=== PATIENT | female | born 1990 | race Caucasian/White ===

== ENCOUNTER 2018-06-19 16:18 | Emergency (ER) | payer OTHER, SELFPAY ==
[2018-06-19 16:26] VITALS: BP 165/102; PULSE 89; RESP 20; O2SAT 98
--- NOTE | 2018-06-19 16:37 | ED.ABDPAIN ---
HPI - Abdominal Pain General Chief Complaint: Abdominal Pain Stated Complaint: ABD PAIN, CAN'T EAT Time Seen by Provider: 06/19/18 16:23 Source: patient Mode of arrival: ambulatory Limitations: no limitations History of Present Illness HPI narrative: 27-year-old female here for evaluation of epigastric abdominal pain. Patient states that it has been off and on since October. She has has seen her primary doctor for this. Has an appointment with a GI provider in July. She is currently on omeprazole. She states that she has had a right upper quadrant ultrasound of her gallbladder but no diagnosis of gallbladder pathology. She states that she is also nauseous. Does seem to be associated with eating however not all the time. No vomiting. No changes stool. No urinary symptoms. No prior abdominal surgeries. Related Data Home Medications Medication Instructions Recorded Confirmed omeprazole 20 mg PO QDAY #0 11/05/17 06/19/18 escitalopram oxalate 5 mg PO DAILY 06/19/18 06/19/18 Previous Rx's Medication Instructions Recorded ondansetron 4 mg PO BID-TID PRN #10 tab 06/19/18 sucralfate [Carafate] 5 ml PO QID #420 ml 06/19/18 Allergies Allergy/AdvReac Type Severity Reaction Status Date / Time oxycodone [OXYCODONE] Allergy Mild NAUSEA AND Verified 06/19/18 16:30 VOMITING hydrocodone [HYDROCODONE] AdvReac Mild NAUSEA AND Verified 06/19/18 16:30 VOMITING Review of Systems Constitutional Denies fever(s) Cardiovascular Denies chest pain and Denies dyspnea Respiratory Denies dyspnea Gastrointestinal Gastrointestinal: Reports abdominal pain, Denies change in stool character, Denies constipation, Reports nausea and Denies vomiting Genitourinary Denies dysuria Musculoskeletal Denies myalgias and Denies arthralgias Integumentary/Breasts Denies lesions and Denies rash Hematologic/Lymphatic Denies easy bleeding and Denies easy bruising FOR[facility], LAT[facility] Medical History Raynauds disease (Acute) Surgical History No pertinent past surgical history (Acute) Exam Initial Vital Signs Initial Vital Signs: Vital Signs Pulse Rate 89 06/19/18 16:26 Respiratory Rate 20 08/26/18 16:26 Blood Pressure 165/102 H 06/19/18 16:26 Pulse Oximetry 98 06/19/18 16:26 Const General: cooperative, healthy appearing, comfortable, well developed, well groomed and No acute distress Orientation: alert, awake and oriented x3 HENMT Head: normal to inspection and normocephalic Resp Effort & Inspection: normal respiratory effort Auscultation: clear to auscultation bilaterally Cardio Rate: regular rate Rhythm: regular rhythm Heart Sounds: no murmurs Pulses: radial pulses present GI Inspection: non-distended Palpation: soft, No firm and tender (Epigastric region) Back/Spine/Pelvis Back: No CVA tenderness Skin Lesions: no lesions Rashes: no rashes Neuro General: alert, awake and oriented x3 Cognition: normal cognition Speech: speech normal Gait: normal gait Motor: muscle tone normal throughout Sensory Exam: no sensory deficits noted Extrem General: normal to inspection and capillary refill normal Psych Appearance: grossly normal and well kempt Course Orders Ordered: ED Orders 06/19/18 17:00 Complete Blood Count AUTO DIFF Stat Comprehensive Metabolic Panel Stat Lipase Stat Vital Signs - 8 hr 06/19/18 16:26 06/19/18 17:41 Temperature 97.8 F Pulse Rate 89 71 Respiratory Rate 20 16 Blood Pressure 165/102 H Blood Pressure [Right Arm] 119/77 Pulse Oximetry 98 100 MDM - Abdominal Pain Lab Data Attestation: I reviewed the patient's lab results. Result diagrams: 06/19/18 17:00 06/19/18 17:00 Lab Results 06/19/18 06/19/18 Range/Units 17:00 17:00 WBC 8.1 (4.5-11.0) X10^3/uL RBC 4.58 (4.0-5.2) X10^6/uL Hgb 13.5 (12.0-16.0) g/dL Hct 40.1 (36-46) % MCV 87.6 (80-100) fL MCH 29.4 (26-34) PG MCHC 33.6 (30-36) % RDW 13.5 (11.6-14.8) % Plt Count 210 (150-400) X10^3/uL Neut % (Auto) 62.7 (50-75) % Lymph % (Auto) 30.0 (25-40) % [place] % (Auto) 5.6 (3-14) % Eos % (Auto) 0.8 L (2-4) % Baso % (Auto) 0.9 (0-2) % Neut # (Auto) 5100 (1273-0732) /uL Sodium 143 (137-145) mmol/L Potassium 3.6 (3.4-5.1) mmol/L Chloride 105 (98-107) mmol/L Carbon Dioxide 28 (22-32) mmol/L BUN 11 (7-17) mg/dL Creatinine 0.60 (0.52-1.04) mg/dL Estimated GFR > 60.0 (>60) mL/min BUN/Creatinine Ratio 18.3 (6-22) Glucose 119 H (70-100) mg/dL Calcium 9.4 (8.4-10.2) mg/dL Total Bilirubin 0.7 (0.2-1.3) mg/dL AST 21 (14-36) IU/L ALT 20 (9-52) IU/L Alkaline Phosphatase 60 (38-126) U/L Total Protein 7.3 (6.3-8.2) g/dL Albumin 4.6 (3.5-5.0) g/dL Globulin 2.7 (1.7-4.1) g/dL Albumin/Globulin Ratio 1.7 (1.0-2.8) Lipase 50 (23-300) U/L MDM Narrative Medical decision making narrative: Labs are unremarkable. Has a benign abdominal exam. Has had off and on pain since October. Have low suspicion for acute surgical pathology. She currently is on a map result 20 mg every day. Will give her prescription for Carafate. Her symptoms sound very much like a gastric ulcer. Also sent home with some Zofran. She has a follow-up with GI coming up. She was given return precautions. She expressed understanding and agreement with plan. Discharge Plan Departure Patient Disposition: Home Clinical Impression: Abdominal pain Instructions: DI for Abdominal Pain-Adult Activity Restrictions/Additional Instructions: Take the medication like we discussed. Keep your scheduled appointment with your GI provider. Return to the emergency department for any new or worsening symptoms Prescriptions: New sucralfate [Carafate] 100 mg/mL suspension 5 ml PO QID Qty: 420 RF: 0 ondansetron 4 mg tablet,disintegrating 4 mg PO BID-TID PRN (Reason: nausea and vomiting) Qty: 10 RF: 0 No Action omeprazole 20 MG capsule,delayed release(DR/EC) 20 mg PO QDAY Qty: 0 RF: 0 escitalopram oxalate 5 mg Tablet 5 mg PO DAILY RF: 0
[2018-06-19 17:11] LABS: Add Manual Diff / Slide Review NO; Basophils Percent Auto 0.9 % (0-2); Eosinophils Percent Auto 0.8 % (2-4); Hematocrit 40.1 % (36-46); Hemoglobin 13.5 g/dL (12.0-16.0); Mean Corpuscular HGB Conc 33.6 % (30-36); Mean Corpuscular Hemoglobin 29.4 PG (26-34); Mean Corpuscular Volume 87.6 fL (80-100); Monocytes Percent Auto 5.6 % (3-14); Neutrophils Absolute Auto 5100 /uL (3000-5900); Neutrophils Percent Auto 62.7 % (50-75); Platelet Count 210 X10^3/uL (150-400); Red Blood Cell Count 4.58 X10^6/uL (4.0-5.2); Red Cell Distribution Width 13.5 % (11.6-14.8); White Blood Cell Count 8.1 X10^3/uL (4.5-11.0)
[2018-06-19 17:22] LABS: Alanine Aminotransferase 20 IU/L (9-52); Albumin 4.6 g/dL (3.5-5.0); Albumin Globulin Ratio 1.7 (1.0-2.8); Alkaline Phosphatase 60 U/L (38-126); Aspartate Aminotransferase 21 IU/L (14-36); BUN Creatinine Ratio 18.3 (6-22); Bilirubin Total 0.7 mg/dL (0.2-1.3); Blood Urea Nitrogen 11 mg/dL (7-17); Calcium 9.4 mg/dL (8.4-10.2); Carbon Dioxide 28 mmol/L (22-32); Chloride 105 mmol/L (98-107); Estimated Glomerular Filt Rate > 60.0 mL/min (>60); Globulin 2.7 g/dL (1.7-4.1); Glucose 119 mg/dL (70-100); HEMOLYSIS < 15 (0-50); Lipase 50 U/L (23-300); Potassium 3.6 mmol/L (3.4-5.1); Sodium 143 mmol/L (137-145); Total Protein 7.3 g/dL (6.3-8.2)
[2018-06-19 17:41] VITALS: BP 119/77; PULSE 71; RESP 16; TEMP 36.6; O2SAT 100
== END 2018-06-19 17:58 | disposition home or self-care (01) ==
PROVIDERS: Emergency Provider Emergency Medicine; Family Provider Family Medicine; PCP Family Medicine
DX: R10.9 Unspecified abdominal pain (principal)
CPT/HCPCS: 36415; 80053; 83690; 85025; 99282; 99283

== ENCOUNTER → 2018-10-10 07:44 | Outpatient (CLI) | payer OTHER, SELFPAY ==
--- NOTE | 2018-10-10 | DI.CT.S_ITS ---
PROCEDURE: CT ABDOMEN PELVIS W CON INDICATIONS: ABDOMINAL PAIN TECHNIQUE: After the administration of intravenous contrast, 5 mm thick sections acquired from the diaphragm to the symphysis. 5 mm coronal and sagittal reformats were acquired. For radiation dose reduction, the following was used: automated exposure control, adjustment of mA and/or kV according to patient size. COMPARISON: [facility], CT, CT ABDOMEN PELVIS WITH CONTRAST, 09/28/2018, 10:41. FINDINGS: Image quality: Excellent. ABDOMEN: Lung bases: Lung bases are clear. Heart size is normal. Solid organs: Liver is normal in size and enhancement. Gallbladder is partially contracted. Biliary system is non dilated. Pancreas enhances normally. Spleen is normal in size and enhancement. No adrenal nodules. Kidneys demonstrate normal size and enhancement, without hydronephrosis. Peritoneum and bowel: Bowel loops demonstrate normal wall thickness and caliber. No pneumoperitoneum. Previously seen short segment small bowel to small bowel intussusception has resolved. Normal appendix. Small amount of free fluid within the pelvis, within physiological limits in a menstruating female. Nodes and vessels: No retroperitoneal or mesenteric adenopathy by size criteria. Aorta and inferior vena cava are normal in size. Miscellaneous: No change in 16 mm diameter fat-containing umbilical hernia. PELVIS: Genitourinary: Bladder wall thickness is normal. An intrauterine device is present, as before. A partially collapsed left ovarian cyst measuring 17 mm is present. Miscellaneous: No inguinal hernias or adenopathy. Bones: No suspicious bony lesions. No vertebral body compression fractures. IMPRESSION: 1. Resolution of previously seen mildly prominent mesenteric lymph nodes, compatible with resolution of mesenteric adenitis. 2. Resolution of previously seen short segment small bowel to small bowel intussusception. 3. Negative evaluation of the bowel. 4. Small amount of free fluid within the pelvis, within physiological limits in a menstruating female. 5. Normal appendix. Dictated by: Valerie Menjivar M.D. on 10/10/2018 at 10:52 Approved by: Valerie Menjivar M.D. on 10/10/2018 at 10:57
== END ==
PROVIDERS: Family Provider Family Medicine; PCP Family Medicine; Visit Provider Nurse Practitioner Family
DX: R10.10 Upper abdominal pain, unspecified (principal); N83.202 Unspecified ovarian cyst, left side; Z97.5 Presence of (intrauterine) contraceptive device
CPT/HCPCS: 74177; Q9967

== ENCOUNTER → 2018-10-20 07:45 | Outpatient (CLI) | payer OTHER, SELFPAY ==
--- NOTE | 2018-10-20 | DI.NM.S_ITS ---
PROCEDURE: NM GASTRIC EMPTYING STUDY RADIOPHARMACEUTICAL: 1.0 mCi Tc-99m sulfur colloid in an egg sandwich. INDICATIONS: Upper abdominal pain, unspecified TECHNIQUE: A Tc-99m labeled sulfur colloid labeled egg sandwich or oatmeal was served to the patient. Anterior and posterior planar images of the abdomen were obtained at 0 minutes and 30 minutes, then at hourly intervals up to 4 hours. The patient was upright and ambulating during the interval. COMPARISON: [facility], CT, CT ABDOMEN PELVIS WITH CONTRAST, 09/28/2018, 10:41. [facility], CT, CT ABDOMEN PELVIS W CON, 10/10/2018, 9:02. FINDINGS: The stomach has normal size, morphology, and position. There is normal emptying of solid gastric contents from the stomach by visual inspection. No gastroesophageal reflux is visualized. The percentage of tracer retained at specific time points are as follows: Time point Percent gastric retention Normal range 30 minutes 69% 70% or more 1 hour 43% 30% to 90% 2 hours 50% 60% or less 3 hours 4% 30% or less 4 hours - 10% or less IMPRESSION: Probably normal gastric emptying study although the initial phase of gastric emptying is just slightly faster (69% gastric retention at 30 minutes) than normal (70% or more). Dictated by: Sekou Carbone M.D. on 10/20/2018 at 12:49 Approved by: Sekou Carbone M.D. on 10/20/2018 at 16:39
== END ==
PROVIDERS: Family Provider Family Medicine; PCP Family Medicine; Visit Provider Nurse Practitioner Family
DX: R10.10 Upper abdominal pain, unspecified (principal)
CPT/HCPCS: 78264; A9541

== ENCOUNTER → 2019-12-28 19:05 | Outpatient (ROUT) | payer OTHER, SELFPAY ==
[2019-12-28 21:38] LABS: Urine N gonorrhoeae NOT DETECTED
[2019-12-28 22:07] LABS: Urine Chlamydia NOT DETECTED
== END ==
PROVIDERS: Family Provider Family Medicine; PCP Family Medicine
DX: Z11.3 Encounter for screening for infections with a predominantly sexual mode of transmission (principal)
CPT/HCPCS: 87491; 87591

== ENCOUNTER 2020-09-15 09:21 | Emergency (ER) | payer OTHER, SELFPAY ==
[2020-09-15 09:37] VITALS: BP 150/90; PULSE 74; RESP 16; TEMP 36.4; O2SAT 100; BMI 23.9
--- NOTE | 2020-09-15 10:11 | ED_ITS ---
HPI - Extremity Problem General Chief complaint: Extremity Problem,Nontraumatic Stated complaint: LEFT THUMB INFECTION POSS SPREADING UP ARM Time Seen by Provider: 09/15/20 10:02 Source: patient Mode of arrival: Ambulatory Limitations: no limitations History of Present Illness HPI Narrative: This is a 30-year-old female who comes in with complaint of left thumb infection. Patient states she noticed a little bit of swelling last couple days it has increased throughout the thumb and she has kind of up into her hand and even feels like little bit of discomfort towards the elbow. Patient has not had any fevers, no chills, no other systemic symptoms. She has had a little of numbness of the distal thumb, she has not appreciated any major skin color changes. She denies any major medical issues. She does not recall any injuries cuts that may have caused it. She thought she may have had a splinter in her thumb but did not actually see 1 or any entrance site for a splinter at any point. She states that her only allergies are nausea and vomiting to narcotics. Related Data Home Medications Medication Instructions Recorded Confirmed levonorgestrel 20 mcg/24 hours (5 INTRAUTERINE each 03/03/19 04/29/20 yrs) 52 mg intrauterine device sumatriptan succinate 100 mg tablet 100 mg PO Q2-4H PRN 05/16/19 04/29/20 Previous Rx's Medication Instructions Recorded clindamycin HCl 300 mg PO Q6H 7 Days #28 cap 09/15/20 Allergies Allergy/AdvReac Type Severity Reaction Status Date / Time oxycodone [OXYCODONE] Allergy Mild NAUSEA AND Verified 04/29/20 10:08 VOMITING hydrocodone [HYDROCODONE] AdvReac Mild NAUSEA AND Verified 04/29/20 10:08 VOMITING Review of Systems Review of Systems ROS Unobtainable: All systems reviewed & are unremarkable except as noted in HPI and below Patient History Medical History Crohn's disease Raynauds disease Surgical History No pertinent past surgical history Social History Smoking Status: Former smoker Smoking Status: Former smoker alcohol intake frequency: holidays/special occasions only Substance Use Type: does not use Exam Narrative Exam Narrative: GENERAL: Alert and oriented x three, well-nourished, well- appearing female in mild distress. HEENT: Head normocephalic, atraumatic, EOMI, pupils reactive, face symmetric, moist mucous membranes NECK: Supple, full range of motion EXTREMITIES: Normal range of motion, no clubbing. Patient has swelling of the 1st digit/thumb on the left hand. It is mild in comparison to her other thumb but does appear swollen. She has mild tenderness throughout there is no fluid collection or obvious change, there is no erythema or warmth. Patient has cap refill less than 2 seconds in all 5 fingers. He has full range of motion with flexion and extension. There are no areas of induration, fluctuance or fluid collection noted. Neurovascularly intact NEUROLOGICAL: Cranial nerves II through XII grossly intact. Moving all extremities SKIN: Warm, dry, no petechiae, no rashes or lesions. Initial Vital Signs Initial Vital Signs: Vital Signs Temperature 97.6 F 09/15/20 09:37 Pulse Rate 74 09/15/20 09:37 Respiratory Rate 16 09/15/20 09:37 Blood Pressure 150/90 H 09/15/20 09:37 Pulse Oximetry 100 09/15/20 09:37 Course Vital Signs Vital signs: Vital Signs - 8 hr 09/15/20 09:37 09/15/20 10:46 Temperature 97.6 F Pulse Rate 74 65 Respiratory Rate 16 14 Blood Pressure 150/90 H 150/90 H Pulse Oximetry 100 97 MDM - Extremity (Nontraumatic) MDM Narrative Medical decision making narrative: Patient does not have any areas that can be drained. We did discuss Abla edwards and blayne and. At this time I do not feel she would be appropriate to I and D, plan to start oral antibiotics and have patient return if worsening. Also discussed doing warm compresses. 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 Discharge Plan Departure Patient Disposition: Home Clinical Impression: Infection of thumb Instructions: DI for Felon Activity Restrictions/Additional Instructions: Follow-up in the next several days for recheck if her symptoms are not resolving. Continue with warm compresses for 15-20 minutes 4 times daily. Take antibiotics until they are completely gone You may wish to take a probiotic [id number] or eat yogurt daily while taking antibiotics. Return for fevers, rapidly worsening swelling, increasing pain, new numbness, loss of sensation, inability to flex or extend your thumb, redness, swelling or pain moving up her hand or arm or other new or concerning symptoms. Prescriptions: New clindamycin HCl 300 mg capsule 300 mg PO Q6H 7 Days Qty: 28 RF: 0 No Action Mirena 20 mcg/24 hours (5 yrs) 52 mg intrauterine device Intrauterine RF: 0 sumatriptan succinate 100 mg tablet 100 mg PO Q2-4H PRNRF: 0
[2020-09-15 10:46] VITALS: BP 150/90; PULSE 65; RESP 14; O2SAT 97
== END 2020-09-15 10:48 | disposition home or self-care (01) ==
PROVIDERS: Emergency Provider Emergency Medicine; Family Provider Family Medicine
DX: L08.9 Local infection of the skin and subcutaneous tissue, unspecified (principal)
CPT/HCPCS: 99281

== ENCOUNTER → 2021-05-29 15:38 | Outpatient (CLI) | payer OTHER, SELFPAY ==
--- NOTE | 2021-05-29 | DI.MRI.S_ITS ---
PROCEDURE: MR KNEE LT WO CON INDICATIONS: Left knee pain TECHNIQUE: Noncontrast sagittal PD fast spin echo and T2 fast spin echo with fat saturation, sagittal 3-D FLASH with fat saturation; coronal T1 spin echo and PD fast spin echo with fat saturation, and axial PD fast spin echo with fat saturation through the knee. COMPARISON: [facility], MR, KNEE WITHOUT CONTRAST, 03/07/2015, 9:07. FINDINGS: Image quality: Excellent. Menisci: The medial and lateral menisci demonstrate normal morphology and internal signal. The meniscal root ligaments appear intact. Cruciate ligaments: The anterior and posterior cruciate ligaments appear intact. Medial structures: The medial collateral ligament appears intact. The semimembranosus tendon insertions and meniscocapsular junction appear intact. Visualized portions of the pes anserinus tendons appear normal. No abnormal bursal fluid. Lateral structures: The lateral collateral ligament, long and short heads of the biceps femoris tendon appear intact. The popliteus tendon appears intact. No signs of posterolateral corner injury. Iliotibial band appears normal. Anterior structures: The quadriceps and patellar tendons appear intact. Patellar alignment is normal. No femoral trochlear dysplasia or ventral trochlear prominence. No edema in the infrapatellar fat pad. Bones and cartilage: No bone marrow contusions or fractures. The cartilage of the medial and lateral femorotibial compartments, as well as the patellofemoral compartment, appears normal in thickness. Joint space: There is physiologic knee joint fluid. Trace medial popliteal cyst. IMPRESSION: 1. No acute trabecular bone injury. The cruciate and collateral ligaments are intact. There is no meniscal tear. 2. Trace medial popliteal cyst. Dictated by: Harjinder Amanda M.D. on 05/29/2021 at 16:28 Approved by: Harjinder Amanda M.D. on 05/29/2021 at 16:33
== END ==
PROVIDERS: Family Provider Family Medicine; Referring Provider Family Medicine; Visit Provider Family Medicine
DX: M25.562 Pain in left knee (principal)
CPT/HCPCS: 73721

== ENCOUNTER → 2022-12-16 13:17 | Outpatient (CLI) | payer OTHER, SELFPAY ==
[2022-12-19 13:45] LABS: QuantiFERON Mitogen Value >10.00 IU/mL (.); QuantiFERON Nil Value 0.01 IU/mL (.); QuantiFERON TB Gold Plus Negative (Negative); QuantiFERON TB1 Ag Value 0.02 IU/mL (.); QuantiFERON TB2 Ag Value 0.02 IU/mL (.)
== END ==
PROVIDERS: Family Provider Family Medicine; Referring Provider Internal Medicine Gastroenterology; Visit Provider Internal Medicine Gastroenterology
DX: K50.00 Crohn's disease of small intestine without complications (principal)
CPT/HCPCS: 36415; 86480

== ENCOUNTER → 2024-06-21 13:21 | Outpatient (CLI) | payer OTHER, SELFPAY ==
--- NOTE | 2024-06-21 13:23 | DI.CT.S_ITS ---
PROCEDURE: CT ABDOMEN PELVIS W CON INDICATIONS: generalized abdominal pain,chronic constipation,cr TECHNIQUE: After the administration of intravenous contrast, axial sections acquired from the lung bases to the pubic symphysis. Coronal and sagittal reformats were performed. For radiation dose reduction, the following was used: automated exposure control, adjustment of mA and/or kV according to patient size. COMPARISON: [facility], CT, CT ABDOMEN PELVIS W CON, 10/10/2018, 9:02. FINDINGS: Image quality: Diagnostic. Lower Chest: No significant findings. ABDOMEN: Liver: No solid mass. There are a few scattered subcentimeter hepatic hypodensities which are too small to accurately characterize but likely represent cysts versus hemangiomas. Gallbladder: No radiopaque gallstones or wall thickening. Biliary ducts: No biliary dilation. Pancreas: Homogeneous enhancement without focal lesions or pancreatic ductal dilatation. No peripancreatic inflammation or organized fluid collections. Spleen: Size is within normal limits. Adrenal Glands: No adrenal nodules. Kidneys and Ureters: No hydronephrosis. No solid mass. No complex renal cystic lesion which requires follow up. Stomach and Bowel: There is circumferential wall thickening of the mid to distal sigmoid colon and rectum. Mild surrounding inflammatory stranding. There is also associated pelvic free fluid. No evidence for peritoneal enhancement. Moderate amount of fecal material seen throughout the colon. Normal appendix. No evidence for small bowel obstruction or associated inflammatory changes. Peritoneum: No free air. Small amount of pelvic free fluid likely physiologic versus reactive. Ventral Wall: There is a fat-containing umbilical hernia without acute inflammation. Abdominal Nodes: No retroperitoneal or mesenteric adenopathy by size criteria. Vessels: Aorta and inferior vena cava are normal in size. PELVIS: Pelvic Organs: Unremarkable. Bladder: No bladder wall thickening, accounting for underdistention. Pelvic Nodes: No enlarged lymph nodes. Miscellaneous: No inguinal hernias are seen. Metallic foreign body projects posterior to the left gluteus muscle, stable. Bones: No aggressive osseous abnormality. Visualized osseous structures appear intact without acute fracture or focal destructive lesion. No acute compression fractures of the imaged spine. IMPRESSION: Circumferential wall thickening of the mid to distal sigmoid colon and rectum compatible with proctocolitis either infectious or inflammatory in etiology. Moderate fecal material seen throughout the colon. No evidence for small bowel obstruction. No other acute abnormalities identified in the abdomen or pelvis. Dictated by: Tre Garrison M.D. on 06/21/2024 at 16:55 Approved by: Tre Garrison M.D. on 06/21/2024 at 17:05
== END ==
LOC: CT 13:22
PROVIDERS: Family Provider Family Medicine; Referring Provider Physician Assistant; Visit Provider Physician Assistant
DX: R10.84 Generalized abdominal pain (principal); K59.09 Other constipation; K50.00 Crohn's disease of small intestine without complications
CPT/HCPCS: 74177; Q9967

== ENCOUNTER → 2024-11-16 08:16 | Outpatient (CLI) | payer OTHER, SELFPAY ==
--- NOTE | 2024-11-16 08:18 | DI.MRI.S_ITS ---
PROCEDURE: MR ANKLE LT WO CON INDICATIONS: ACHILLES TENDON DISORDER/PAIN IN LEFT HEEL TECHNIQUE: Noncontrast sagittal T1 spin echo and T2 fast spin echo with fat saturation, axial proton density fast spin echo and T2 fast spin echo with fat saturation, coronal T1 spin echo and T2 fast spin echo with fat saturation through the ankle/hindfoot. COMPARISON: [facility], MR, MR ANKLE LEFT WITHOUT CONTRAST, 06/05/2023, 15:25. FINDINGS: Image quality: Excellent. Bones and joints: No acute trabecular bone injury or fracture. No hindfoot coalitions. No osteochondral injuries of the talar dome. Scarring is seen posterolateral to the local involving the subcutaneous tissues extending to Kager's fat pad. The os trigonum has been resected. Medial structures: The deltoid ligament and the spring ligament complex are intact. There is tendinosis and mild tenosynovitis of the distal posterior tibialis tendon and mild tenosynovitis of the flexor digitorum longus tendon. The flexor hallucis longus tendon is intact. The posterior tibial neurovascular bundle appears normal within the tarsal tunnel, without extrinsic mass effect. Lateral structures: Remote prior low-grade sprain of the anterior talofibular ligament. The calcaneofibular ligament and the posterior talofibular ligament are intact. The anterior and posterior tibiofibular ligaments are intact. The peroneus longus and brevis tendons demonstrate normal location and morphology. The sinus tarsi demonstrates normal fatty signal. Anterior structures: The tibialis anterior, extensor hallucis longus, and extensor digitorum longus tendons appear intact. Posterior and plantar structures: Mild Achilles tendinosis. Focal intrasubstance fluid signal could indicate focal low-grade partial tearing although the majority of tendon fibers are intact. The proximal plantar fascia is mildly thickened without surrounding edema. No abductor digiti minimi muscle atrophy to suggest Preciado neuropathy. IMPRESSION: 1. Postsurgical changes from prior resection of an os trigonum with soft tissue scarring posterior lateral to the ankle. 2. Mild Achilles tendinosis with possible focal low-grade partial intrasubstance tearing. The bulk of the tendon fibers are intact. 3. [id number] distal posterior tibialis tendinosis and mild tenosynovitis of the posterior tibialis and flexor digitorum longus tendons. 4. Remote prior low-grade sprain of the anterior talofibular ligament. 5. Chronic proximal plantar fasciitis. Approved by: Harjinder Amanda M.D. on 11/16/2024 at 17:05
--- NOTE | 2024-11-16 08:18 | DI.MRI.S_ITS ---
PROCEDURE: MRFOOT LT WO CON INDICATIONS: ACHILLES TENDON DISORDER/PAIN IN LEFT HEEL TECHNIQUE: Multiphasic, multisequence MRI of the forefoot was performed, without intravenous contrast administration. COMPARISON: [facility], CR, XR FOOT 3+ VIEWS LEFT, 05/26/2023, 12:04. FINDINGS: Image quality: Excellent. Bones and joints: No bone marrow contusions or metatarsal stress fractures. The sesamoid bones appear in expected positions, without internal edema. Mild degenerative changes are seen at the 1st metatarsophalangeal joint. No intraosseous lesions. Soft tissues: Mild flexor hallucis longus tenosynovitis within the midfoot to the mid metatarsal level. The visualized plantar foot muscles demonstrate normal signal and bulk. Visualized flexor and extensor tendons otherwise appear intact, without tenosynovitis. The distal insertions of the peroneus brevis and longus tendons appear intact. The principal Lisfranc ligament appears intact. No soft tissue ganglion cysts or bursal fluid collections. Sagittal images demonstrate no evidence for plantar plate tears. IMPRESSION: 1. Mild flexor hallucis longus tenosynovitis. 2. 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 Approved by: Harjinder Amanda M.D. on 11/16/2024 at 17:09
== END ==
PROVIDERS: Family Provider Family Medicine; PCP Family Medicine; Referring Provider Family Medicine; Visit Provider Family Medicine
DX: M19.072 Primary osteoarthritis, left ankle and foot (principal); M65.972 Unspecified synovitis and tenosynovitis, left ankle and foot; M72.2 Plantar fascial fibromatosis; S93.492A Sprain of other ligament of left ankle, initial encounter; M79.672 Pain in left foot
CPT/HCPCS: 73718; 73721

== ENCOUNTER 2025-05-09 09:12 | Emergency (ER) | payer OTHER, SELFPAY ==
[2025-05-09] VITALS (16 sets, daily range): BP systolic 111–138; BP diastolic 64–84; PULSE 43–66; RESP 13–20; TEMP 36.5; O2SAT 96–99; BMI 28.8
[2025-05-09 09:42] LABS: Add Manual Diff / Slide Review NO; Hematocrit 41.3 % (36-46); Hemoglobin 13.7 g/dL (12.0-16.0); Lymphocytes Absolute Auto 2000 /uL (1100-4500); Mean Corpuscular HGB Conc 33.2 % (30-36); Mean Corpuscular Hemoglobin 29.9 PG (26-34); Mean Corpuscular Volume 90.1 fL (80-100); Platelet Count 191 X10^3/uL (150-400)
[2025-05-09 09:53] LABS: Alanine Aminotransferase 15 IU/L (<35); Albumin 4.7 g/dL (3.5-5.0); Albumin Globulin Ratio 1.7 (1.0-2.8); Alkaline Phosphatase 56 U/L (38-126); Blood Urea Nitrogen 11 mg/dL (7-17); Calcium 9.1 mg/dL (8.4-10.2); Carbon Dioxide 24 mmol/L (22-32); Chloride 106 mmol/L (98-107); Estimated Glomerular Filt Rate > 60 mL/min (>60); Globulin 2.8 g/dL (1.7-4.1); Glucose 95 mg/dL (70-99); HEMOLYSIS 20 (0-50); Lipase 43 U/L (23-300); Potassium 4.2 mmol/L (3.4-5.1); Sodium 136 mmol/L (137-145); Total Protein 7.5 g/dL (6.3-8.2)
--- NOTE | 2025-05-09 11:26 | EKG_ITS ---
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
--- NOTE | 2025-05-09 11:44 | PC.NURSE ---
Iv placed by another nurse
--- NOTE | 2025-05-09 11:51 | DI.CT.S_ITS ---
PROCEDURE: CT ABDOMEN PELVIS W CON INDICATIONS: Right lower quadrant pain TECHNIQUE: After the administration of intravenous contrast, axial sections acquired from the lung bases to the pubic symphysis. Coronal and sagittal reformats were performed. For radiation dose reduction, the following was used: automated exposure control, adjustment of mA and/or kV according to patient size. COMPARISON: [facility], CT, CT ABDOMEN PELVIS W CON, 06/21/2024, 14:25. FINDINGS: Image quality: Diagnostic. Lower Chest: No significant findings. ABDOMEN: Liver: No solid mass. Gallbladder: No radiopaque gallstones or wall thickening. Biliary ducts: No biliary dilation. Pancreas: No ductal dilation. Spleen: Size is within normal limits. Adrenal Glands: No adrenal nodules. Kidneys and Ureters: No hydronephrosis. No solid mass. No complex renal cystic lesion which requires follow up. Stomach and Bowel: Normal colonic caliber, without significant wall thickening. Normal appendix. Peritoneum: No abnormal intraperitoneal fluid. No free air. Ventral Wall: No significant ventral hernia. Abdominal Nodes: No retroperitoneal or mesenteric adenopathy by size criteria. Vessels: Aorta and inferior vena cava are normal in size. PELVIS: Pelvic Organs: Unremarkable. Note made of tampon. Bladder: No bladder wall thickening, accounting for underdistention. Pelvic Nodes: No enlarged lymph nodes. Miscellaneous: No inguinal hernias are seen. Bones: No aggressive osseous abnormality. IMPRESSION: 1. Normal appendix. 2. No acute abdominal process identified. Dictated by: Suleiman Navas M.D. on 05/09/2025 at 13:11 Approved by: Suleiman Navas M.D. on 05/09/2025 at 13:15
--- NOTE | 2025-05-09 11:53 | ED.ABDPAIN ---
HPI - Abdominal Pain General Chief Complaint: Abdominal Pain Stated Complaint: Bad stomach pain , possible Crohn's flare up Time Seen by Provider: 05/09/25 09:48 Mode of arrival: Ambulatory History of Present Illness HPI narrative: Patient here for off and on right lower quadrant pain sharp pain nonradiating pain for the past few days. Patient states she has Crohn's and this does not feel like typical pain for her. No black or bloody stools. No urinary complaints. Currently no discomfort. No prior history appendectomy or kidney stones. Related Data Home Medications ?Medication ?Instructions ?Recorded ?Confirmed levonorgestrel 21 mcg/24 hr (up to intrauterine 03/03/19 04/29/20 8 years) 52 mg intrauterine device (Mirena) ferrous fumarate-docusate [iron] PO 08/03/22 08/03/22 fluoxetine [Prozac] PO 08/03/22 08/03/22 Allergies Allergy/AdvReac Type Severity Reaction Status Date / Time oxycodone (OXYCODONE) Allergy Mild NAUSEA AND Verified 05/09/25 09:28 VOMITING hydrocodone (HYDROCODONE) AdvReac Mild NAUSEA AND Verified 05/09/25 09:28 VOMITING Review of Systems Review of Systems Narrative: GENERAL: Negative chills, fatigue, malaise, fever, sweats. HEENT: Negative sinus pain, ear pain, sore throat RESPIRATORY: Negative dyspnea, cough CARDIOVASCULAR: Negative chest pain, palpitations GASTROINTESTINAL: Negative vomiting, nausea, positive abdominal pain : Negative dysuria, frequency, hematuria MUSCULOSKELETAL: Negative muscle or bony pain SKIN: Negative rash, skin lesions NEUROLOGIC: Negative weakness, numbness ROS Unobtainable: All systems reviewed & are unremarkable except as noted in HPI and below Patient History Medical History Crohn's disease Dysplasia of cervix, low grade (KARLA 1) History of pneumonia (07/02/16) Non morbid obesity due to excess calories (08/17/16) Raynauds disease Surgical History No pertinent past surgical history Social History Smoking Status: Never smoker Smoking Status: Never smoker alcohol intake frequency: holidays/special occasions only Exam Narrative Exam Narrative: GENERAL: in no distress, not toxic not dyspneic HEAD: Normocephalic. EYES: Pupils equal round ENT: Mucous membranes moist. NECK: Trachea midline. CARDIOVASCULAR: Regular rate and rhythm RESPIRATORY: Clear to auscultation. Breath sounds equal bilaterally. No wheezes, rales, or rhonchi. GASTROINTESTINAL: Abdomen soft, mild right lower quadrant tenderness. No McBurney point tenderness. No peritoneal signs no guarding or rebound. Bowel sounds are present. No CVA tenderness EXTREMITIES: No gross deformities. BACK: No flank tenderness. NEURO: AOx4. Clear speech SKIN: Warm and dry PSYCH: Not anxious, is cooperative Initial Vital Signs Initial Vital Signs: Vital Signs Pulse Rate 66 05/09/25 09:17 Blood Pressure 126/84 05/09/25 09:17 Pulse Oximetry 99 05/09/25 09:17 Course Orders Ordered: Discontinued Medications Sodium Chloride (Normal Saline 0.9%) 1,000 mls @ 1,000 mls/hr IV BOLUS ONE Stop: 05/09/25 12:50 Last Infusion: 05/09/25 13:58 Dose: Infused Documented By: Admin: 05/09/25 12:36 Dose: 1,000 mls/hr Documented By: DA Ondansetron HCl (Ondansetron 4 Mg/2 Ml Inj) 4 mg IV NOW PRN PRN Reason: Nausea And Vomiting Ondansetron HCl (Ondansetron 4 Mg Odt) 4 mg PO NOW PRN PRN Reason: Nausea And Vomiting Vital Signs Vital signs: Vital Signs - 8 hr 05/09/25 09:17 05/09/25 09:17 05/09/25 09:28 Temperature 97.7 F Pulse Rate 66 61 Respiratory Rate 20 Blood Pressure 126/84 124/84 Pulse Oximetry 99 98 Oxygen Delivery Method Room Air 05/09/25 09:30 05/09/25 10:00 05/09/25 10:30 Temperature Pulse Rate 52 L 49 L 46 L Respiratory Rate Blood Pressure Pulse Oximetry 99 96 97 Oxygen Delivery Method 05/09/25 11:00 05/09/25 11:30 05/09/25 11:37 Temperature Pulse Rate 47 L 45 L Respiratory Rate Blood Pressure 136/82 Pulse Oximetry 97 98 Oxygen Delivery Method 05/09/25 11:37 05/09/25 11:45 05/09/25 12:00 Temperature Pulse Rate 47 L 44 L Respiratory Rate 15 14 Blood Pressure 134/82 138/71 Pulse Oximetry 98 99 Oxygen Delivery Method 05/09/25 12:00 05/09/25 12:22 05/09/25 12:22 Temperature Pulse Rate 44 L 44 L Respiratory Rate 13 19 Blood Pressure 131/64 Pulse Oximetry 97 99 Oxygen Delivery Method 05/09/25 12:30 05/09/25 12:30 05/09/25 13:00 Temperature Pulse Rate 44 L Respiratory Rate 14 Blood Pressure 117/66 118/67 Pulse Oximetry 97 Oxygen Delivery Method 05/09/25 13:00 05/09/25 13:30 05/09/25 13:30 Temperature Pulse Rate 43 L 48 L Respiratory Rate 14 17 Blood Pressure 111/70 Pulse Oximetry 99 97 Oxygen Delivery Method 05/09/25 14:00 05/09/25 14:00 Temperature Pulse Rate 43 L Respiratory Rate 13 Blood Pressure 119/69 Pulse Oximetry 97 Oxygen Delivery Method MDM - Abdominal Pain Lab Data 05/09/25 09:39 05/09/25 09:39 Labs: Lab Results 05/09/25 05/09/25 Range/Units 09:34 09:39 WBC 4.8 (4.5-11.0) X10^3/uL RBC 4.59 (4.0-5.2) X10^6/uL Hgb 13.7 (12.0-16.0) g/dL Hct 41.3 (36-46) % MCV 90.1 (80-100) fL MCH 29.9 (26-34) PG MCHC 33.2 (30-36) % RDW 14.3 (11.6-14.8) % Plt Count 191 (150-400) X10^3/uL Neut % (Auto) 47.6 L (50-75) % Lymph % (Auto) 41.5 H (25-40) % [place] % (Auto) 8.2 (3-14) % Eos % (Auto) 1.9 L (2-4) % Baso % (Auto) 0.8 (0-2) % Neut # (Auto) 2300 (8726-6788) /uL Lymph # (Auto) 2000 (9483-3228) /uL [place] # (Auto) 400 (0-900) /uL Eos # (Auto) 100 (0-450) /uL Baso # (Auto) 0 (0-100) /uL Sodium 136 L (137-145) mmol/L Potassium 4.2 (3.4-5.1) mmol/L Chloride 106 (98-107) mmol/L Carbon Dioxide 24 (22-32) mmol/L BUN 11 (7-17) mg/dL Creatinine 0.73 (0.52-1.04) mg/dL Estimated GFR > 60 (>60) mL/min BUN/Creatinine Ratio 15.1 (6-22) Glucose 95 (70-99) mg/dL Calcium 9.1 (8.4-10.2) mg/dL Total Bilirubin 0.9 (0.2-1.3) mg/dL AST 26 (14-36) IU/L ALT 15 (<35) IU/L Alkaline Phosphatase 56 (38-126) U/L Total Protein 7.5 (6.3-8.2) g/dL Albumin 4.7 (3.5-5.0) g/dL Globulin 2.8 (1.7-4.1) g/dL Albumin/Globulin Ratio 1.7 (1.0-2.8) Lipase 43 (23-300) U/L Serum , Qual Negative (Negative) Point of care testing: Urine Dip Bedside Urine Glucose Negative Bedside Urine Bilirubin - Negative Bedside Urine Ketone - Negative Urine Specific [place] 1.005 Bedside Urine Occult Blood +/- Bedside Urine pH 7.5 Bedside Urine Protein - Negative Bedside Urine Urobilinogen - Negative Bedside Urine Nitrite - Negative Bedside Urine Leukocytes - Negative Esterase Imaging Data CT scan - abdomen/pelvis: Radiologist's Impression: [place] [address] CT Scan Report Signed Patient: Jeniffer Sutton MR#: [id number] : 1990 Acct:[id number] Age/Sex: 34 / F Date of Service: 05/09/25 Loc: ED Accession Number: [id number] Procedure: CT abdomen pelvis w con Ordering Provider: Isiah Sweeney MD PROCEDURE: CT ABDOMEN PELVIS W CON INDICATIONS: Right lower quadrant pain TECHNIQUE: After the administration of intravenous contrast, axial sections acquired from the lung bases to the pubic symphysis. Coronal and sagittal reformats were performed. For radiation dose reduction, the following was used: automated exposure control, adjustment of mA and/or kV according to patient size. COMPARISON: [facility], CT, CT ABDOMEN PELVIS W CON, 06/21/2024, 14:25. FINDINGS: Image quality: Diagnostic. Lower Chest: No significant findings. ABDOMEN: Liver: No solid mass. Gallbladder: No radiopaque gallstones or wall thickening. Biliary ducts: No biliary dilation. Pancreas: No ductal dilation. Spleen: Size is within normal limits. Adrenal Glands: No adrenal nodules. Kidneys and Ureters: No hydronephrosis. No solid mass. No complex renal cystic lesion which requires follow up. Stomach and Bowel: Normal colonic caliber, without significant wall thickening. Normal appendix. Peritoneum: No abnormal intraperitoneal fluid. No free air. Ventral Wall: No significant ventral hernia. Abdominal Nodes: No retroperitoneal or mesenteric adenopathy by size criteria. Vessels: Aorta and inferior vena cava are normal in size. PELVIS: Pelvic Organs: Unremarkable. Note made of tampon. Bladder: No bladder wall thickening, accounting for underdistention. Pelvic Nodes: No enlarged lymph nodes. Miscellaneous: No inguinal hernias are seen. Bones: No aggressive osseous abnormality. IMPRESSION: 1. Normal appendix. 2. No acute abdominal process identified. Dictated by: Suleiman Navas M.D. on 05/09/2025 at 13:11 Approved by: Suleiman Navas M.D. on 05/09/2025 at 13:15 [facility] Narrative Medical decision making narrative: Patient here for off and on right lower quadrant pain sharp pain nonradiating pain for the past few days. Patient states she has Crohn's and this does not feel like typical pain for her. No black or bloody stools. No urinary complaints. Currently no discomfort. No prior history appendectomy or kidney stones. After history and exam, CBC CMP urinalysis test CT abdomen pelvis [facility] Medical records reviewed: No recent visit for this complaint Differential considered: Includes but not limited to ureteral stone pyelonephritis UTI appendicitis Crohn's flare-up Lab Test results independently reviewed as above. Pertinent findings: WBC 4.8 hemoglobin 13.7 sodium 136 potassium 4.2 BUN 11 creatinine 0.73, urinalysis negative nitrite negative leukocyte, negative EKG sinus bradycardia rate 46 Imaging studies independently reviewed: CT abdomen pelvis no acute finding Consultations: Re-evaluations: 2:37 p.m.. Updated patient results were they are reassuring. Pain is controlled. Appendicitis precautions reviewed with her. Nontoxic at discharge. She desires discharge home Discussion: Appropriate for discharge home. Exam is reassuring. Return precautions reviewed patient. Pain is controlled. Diagnosis: Right lower quadrant abdominal pain Discharge Plan Departure Patient Disposition: Home Clinical Impression: Abdominal pain Qualifiers: Abdominal location: right lower quadrant Qualified Code(s): R10.31 - Right lower quadrant pain Instructions: DI for Appendicitis -- Adult, DI for Abdominal Pain-Adult Activity Restrictions/Additional Instructions: Your exam and laboratory studies imaging studies are reassuring. Please do return if worse if any questions or concerns. Please see family doctor in a week for re-evaluation. Please be sure to review discharge instructions and information. Prescriptions: No Action Mirena 20 mcg/24 hours (5 yrs) 52 mg intrauterine device Intrauterine ferrous fumarate-docusate [iron] PO fluoxetine [Prozac] PO Referrals: Dana Emery MD [Primary Care Provider, Family Practice] Stand Alone Forms: Patient Portal/API, Work Release Note
--- NOTE | 2025-05-09 11:59 | PC.NURSE ---
patient states she is on her period, her has been given vascetcomy. Provider okaayed imaging without u preg
[2025-05-09 12:03] LABS: Pregnancy Test Serum,Qual Negative (Negative)
[2025-05-09] MEDS: SODIUM CHLORIDE 0.9% 1,000 ML 1000 ML IV (12:36)
== END 2025-05-09 14:47 | disposition home or self-care (01) ==
PROVIDERS: Emergency Provider Emergency Medicine; Family Provider Family Medicine; PCP Family Medicine
DX: R10.31 Right lower quadrant pain (principal); Z87.19 Personal history of other diseases of the digestive system
CPT/HCPCS: 36415; 74177; 80053; 81003; 83690; 84703; 85025; 93005; 96360; 99284; Q9967